=== PATIENT | female | born 1950 | race Two or more races ===

== ENCOUNTER 2017-04-16 10:42 | Outpatient (CLI) | payer OTHER ==
[~2017-04-16 10:42] MED LIST: ACTONEL150 MG PO; ASPIR 8181 MG PO; ATENOLOL100 MG; ATENOLOL100 MG PO; FLONASE16 GM; LYRICA50 MG PO; MAXALT5 MG PO; PREVACID30 MG; PREVACID30 MG PO; PROAIR HFA8.5 GM IH; SYMBICORT 16010.2 GM IH; [UNRECOGNIZED DRUG - OTHER]; [UNRECOGNIZED DRUG - OTHER]; [UNRECOGNIZED DRUG - OTHER] PO
== END 2017-04-16 10:46 | disposition home or self-care (01) ==
LOC: RAD 10:42
DX: N20.1 Calculus of ureter (principal)

== ENCOUNTER → 2017-06-07 | Emergency (ER) | payer OTHER ==
[~2017-06-07] VITALS: Ht 157.5 cm; Wt 81.6 kg
== END | disposition home or self-care (01) ==
LOC: ER 11:30
DX: R51 Headache (principal)

== ENCOUNTER 2017-09-29 06:25 | Emergency (ER) | payer OTHER ==
[~2017-09-29] VITALS: Ht 157.5 cm; Wt 81.6 kg
== END 2017-09-29 09:04 | disposition home or self-care (01) ==
LOC: ER 06:25
DX: R53.82 Chronic fatigue, unspecified (principal); M79.7 Fibromyalgia; M62.838 Other muscle spasm

== ENCOUNTER → 2017-12-27 | Outpatient (CLI) | payer OTHER | END | disposition home or self-care (01) | LOC: MRI 08:43 | DX: M54.5 Low back pain (principal) | CPT/HCPCS: 72148 ==

== ENCOUNTER 2018-04-21 05:45 | Day surgery (SDC) | payer OTHER ==
[2018-04-21] MEDS ORDERED: PERCOCET 5-3251 EACH PO (08:40)
[2018-04-21] MEDS ORDERED: NEURONTIN300 MG PO (08:41)
[2018-04-21] MEDS ORDERED: RECTICARE30 GM TOP (08:42)
== END 2018-04-21 12:30 | disposition home or self-care (01) ==
LOC: CIR.AMB 05:45
DX: K64.4 Residual hemorrhoidal skin tags (principal)

== ENCOUNTER 2018-06-05 08:33 | Outpatient (CLI) | payer OTHER ==
[~2018-06-05 08:33] MED LIST changes: +NEURONTIN300 MG PO; +PERCOCET 5-3251 EACH PO; +RECTICARE30 GM TOP
== END 2018-06-05 08:38 | disposition home or self-care (01) ==
LOC: RAD 08:33
DX: J30.1 Allergic rhinitis due to pollen (principal); J45.41 Moderate persistent asthma with (acute) exacerbation; K21.9 Gastro-esophageal reflux disease without esophagitis; J45.40 Moderate persistent asthma, uncomplicated; R05 Cough

== ENCOUNTER 2018-07-28 07:24 | Outpatient (CLI) | payer OTHER | END 2018-07-28 09:02 | disposition home or self-care (01) | LOC: TOM 07:24 | DX: K62.5 Hemorrhage of anus and rectum (principal); K64.2 Third degree hemorrhoids; L29.0 Pruritus ani ==

== ENCOUNTER 2019-04-17 10:55 | Outpatient (CLI) | payer OTHER | END 2019-04-17 11:25 | disposition home or self-care (01) | LOC: SONOGRAMA 10:55 → MAMO-SONO 13:15 | DX: M25.511 Pain in right shoulder (principal); M25.512 Pain in left shoulder; M25.561 Pain in right knee; M25.562 Pain in left knee; M25.551 Pain in right hip; M25.552 Pain in left hip; E04.0 Nontoxic diffuse goiter; R59.1 Generalized enlarged lymph nodes ==

== ENCOUNTER 2019-07-23 07:30 | Outpatient (CLI) | payer OTHER | END 2019-07-23 08:25 | disposition home or self-care (01) | LOC: NUCLEAR 07:30 | PROVIDERS: ATTEND Internal Medicine | DX: I87.2 Venous insufficiency (chronic) (peripheral) (principal); M79.604 Pain in right leg; M79.605 Pain in left leg; R60.0 Localized edema ==

== ENCOUNTER 2019-07-28 11:45 | Outpatient (CLI) | payer OTHER | END 2019-07-28 11:46 | disposition home or self-care (01) | LOC: RAD 11:45 | PROVIDERS: ATTEND Internal Medicine | DX: M54.5 Low back pain (principal); M79.2 Neuralgia and neuritis, unspecified ==

== ENCOUNTER 2019-08-05 11:34 | Outpatient (CLI) | payer OTHER | END 2019-08-05 11:36 | disposition home or self-care (01) | LOC: NUCLEAR 11:34 | PROVIDERS: ATTEND Internal Medicine | DX: M81.0 Age-related osteoporosis without current pathological fracture (principal) ==

== ENCOUNTER → 2019-11-04 | Outpatient (CLI) | payer OTHER | END | disposition home or self-care (01) | LOC: RAD 13:49 | PROVIDERS: ATTEND Physical Medicine & Rehabilitation Pain Medicine | DX: M46.1 Sacroiliitis, not elsewhere classified (principal) ==

== ENCOUNTER 2020-08-05 08:05 | Outpatient (CLI) | payer OTHER | END 2020-08-05 08:16 | disposition home or self-care (01) | LOC: RAD 08:05 | PROVIDERS: ATTEND Orthopaedic Surgery | DX: M25.551 Pain in right hip (principal); M25.552 Pain in left hip; M25.571 Pain in right ankle and joints of right foot; M25.512 Pain in left shoulder; M75.102 Unspecified rotator cuff tear or rupture of left shoulder, not specified as traumatic | CPT/HCPCS: 73221 ==

== ENCOUNTER 2020-12-16 08:44 | Outpatient (CLI) | payer OTHER | END 2020-12-16 08:54 | disposition home or self-care (01) | LOC: MRI 08:44 | DX: M50.223 Other cervical disc displacement at C6-C7 level (principal) | CPT/HCPCS: 72141 ==

== ENCOUNTER 2022-04-13 07:57 | Outpatient (CLI) | payer OTHER | END 2022-04-13 07:58 | disposition home or self-care (01) | LOC: NUCLEAR 07:57 | PROVIDERS: ATTEND Internal Medicine | DX: I70.213 Atherosclerosis of native arteries of extremities with intermittent claudication, bilateral legs (principal); R60.9 Edema, unspecified; M79.606 Pain in leg, unspecified; I83.93 Asymptomatic varicose veins of bilateral lower extremities ==

== ENCOUNTER 2022-06-18 08:59 | Outpatient (CLI) | payer OTHER | END 2022-06-18 09:07 | disposition home or self-care (01) | LOC: RAD 08:59 | PROVIDERS: ATTEND Internal Medicine | DX: M25.562 Pain in left knee (principal); M25.552 Pain in left hip ==

== ENCOUNTER 2023-05-07 07:36 | Outpatient (CLI) | payer OTHER | END 2023-05-07 07:45 | disposition home or self-care (01) | LOC: MRI 07:36 | PROVIDERS: ATTEND Psychiatry & Neurology Neurology | DX: M48.02 Spinal stenosis, cervical region (principal); M54.12 Radiculopathy, cervical region; M48.061 Spinal stenosis, lumbar region without neurogenic claudication; M54.16 Radiculopathy, lumbar region; I65.22 Occlusion and stenosis of left carotid artery; I65.9 Occlusion and stenosis of unspecified precerebral artery | CPT/HCPCS: 70551; 72141; 72148 ==

== ENCOUNTER → 2023-10-01 | Outpatient (CLI) | payer OTHER | END | disposition home or self-care (01) | LOC: NUCLEAR 08:50 | PROVIDERS: ATTEND Physical Medicine & Rehabilitation | DX: S96.912A Strain of unspecified muscle and tendon at ankle and foot level, left foot, initial encounter (principal); I87.2 Venous insufficiency (chronic) (peripheral) ==

== ENCOUNTER 2024-07-07 04:05 | Emergency (ER) | payer OTHER ==
[~2024-07-07] VITALS: Ht 160 cm; Wt 82.6 kg
[2024-07-07] MEDS ORDERED: DEXAMETHASONE SODIUM PHOSPHATE 4 MG/ML VIAL IM STA (05:15)
[2024-07-07] MEDS ORDERED: ORPHENADRINE CITRATE 30 MG/ML AMPUL IM STA (05:15)
[2024-07-07] MEDS ORDERED: TRAMADOL HCL 50 MG TABLET PO STA (05:16)
[2024-07-07] MEDS ORDERED: ORPHENADRINE CITRATE 30 MG/ML AMPUL ONE (05:18)
[2024-07-07] MEDS ORDERED: DEXAMETHASONE SODIUM PHOSPHATE 4 MG/ML VIAL ONE (05:18)
== END 2024-07-07 05:42 | disposition home or self-care (01) ==
LOC: ER 04:05
DX: M77.8 Other enthesopathies, not elsewhere classified (principal); Z88.0 Allergy status to penicillin; Z88.8 Allergy status to other drugs, medicaments and biological substances
CPT/HCPCS: 96372; 99282; J3490